=== PATIENT | female | born 1940 | race Caucasian/White ===

== ENCOUNTER → 2017-05-19 | Outpatient (CLI) | payer MEDICARE | END | disposition home or self-care (01) | LOC: KCIC 08:55 | DX: M47.894 Other spondylosis, thoracic region (principal); R05 Cough | CPT/HCPCS: 71046 ==

== ENCOUNTER → 2017-12-20 | Outpatient (CLI) | payer MEDICARE | END | disposition home or self-care (01) | LOC: KCIC MRI 07:36 | DX: M25.78 Osteophyte, vertebrae (principal); K44.9 Diaphragmatic hernia without obstruction or gangrene; M43.13 Spondylolisthesis, cervicothoracic region; M48.04 Spinal stenosis, thoracic region; M12.88 Other specific arthropathies, not elsewhere classified, other specified site; E55.9 Vitamin D deficiency, unspecified | CPT/HCPCS: 72141; 72146 ==

== ENCOUNTER → 2020-08-16 | Outpatient (CLI) | payer MEDICARE ==
[~2020-08-16] MED LIST: ASPI325T8 PO; ATOR20TA58 PO; CELE200C PO; ESTR0.62 PO; HYDR-2145 PO; IBUP200T77 PO; OMEP20TA63 PO
--- NOTE | 2020-08-16 13:45 | KCIC ---
INDICATION: Screening for osteopenia/osteoporosis. Postmenopausal evaluation. COMPARISON: May 2016 TECHNIQUE: Bone densitometry was performed through the lumbar spine and proximal femur. IMPRESSION: Lumbar Spine: BMD: 1.28 T-Score: 2.2 Range: Normal. Increased by 2 percent from prior Proximal Femur: BMD: 0.8 T-Score: -1.0 Range: Osteopenic. Similar to prior. World Health Organization Criteria for Bone Density: T-Score: > -1.0: Normal Range < -1.0 to -2.5: Osteopenic Range < -2.5: Osteoporotic Range Electronically signed by: Scott Hubbard MD (08/16/2020 1:43 PM) [id number]
--- NOTE | 2020-08-16 20:20 | KCIC ---
EXAM: 1. Lumbar spine 5 views. 2. Frontal pelvis with two-view bilateral hip. HISTORY: Low back and bilateral hip pain. COMPARISON: None. FINDINGS: A minimal lumbar dextrocurvature is within normal limits. No fractures are identified. Dege nerative disc disease is moderate to severe at L1-2, moderate at L2-3, and mild for patient age more inferiorly. Facet osteoarthritis is mild to moderate throughout the lumbar spine. No fractures are appreciated within the pelvis. The joint spaces and alignment of both hips are maint ained. IMPRESSION: 1. Degenerative disc disease is moderate to severe at L1-2, moderate at L2-3 and mild more inferiorly . 2. No fracture throughout. 3. No significant degenerative changes at either hip. Electronically signed by: Sandy Nice MD (08/16/2020 8:18 PM) [facility]
== END ==
LOC: KCIC MAMMO 12:26
PROVIDERS: ATTEND Nurse Practitioner Family
DX: N95.8 Other specified menopausal and perimenopausal disorders (principal); M51.36 Other intervertebral disc degeneration, lumbar region; M47.816 Spondylosis without myelopathy or radiculopathy, lumbar region
CPT/HCPCS: 72110; 73521; 77080

== ENCOUNTER → 2020-08-23 | Outpatient (CLI) | payer MEDICARE ==
--- NOTE | 2020-08-23 14:15 | KCIC ---
MR LUMBAR SPINE WO [id number] Date: 08/23/2020 1:12 PM Indication: Low back pain, Left hip pain 6 months. Comparison: None. Technique: Multi-planar multi-weighted magnetic resonance imaging of the lumbar spine was performed w ithout intravenous contrast using the standard lumbar spine protocol. FINDINGS: The lumbar spine is normally aligned. No acute fracture. Moderate multilevel degenerative disc desicc ation and disc height loss. Fatty degenerative endplate changes at L2-3 and to a lesser extent L1-2. The conus terminates at a normal level. No abnormal signal is seen within the visualized distal spina l cord. No clumping of intrathecal nerve roots. No soft tissue abnormality in the visualized abdomen or pelvis. T12-L1: No disc bulge. No facet arthropathy. No significant spinal stenosis or neural foraminal narro wing. L1-L2: Disc bulge. Mild facet arthropathy. No significant spinal stenosis. Moderate right and mild le ft neural foraminal narrowing. L2-L3: Disc bulge. Moderate to severe facet arthropathy. No significant spinal stenosis. Mild to mode rate right and moderate severe left neural foraminal narrowing. L3-L4: Disc bulge. Severe right and moderate left facet arthropathy. No spinal stenosis. No neural fo raminal narrowing. L4-L5: Disc bulge. Moderate facet arthropathy. No significant spinal stenosis. Mild right greater chris n left neural foraminal narrowing. L5-S1: Disc bulge. Severe right and moderate left facet arthropathy. No significant spinal stenosis. Mild bilateral neural foraminal narrowing. IMPRESSION: Moderate lumbar spondylosis, detailed level by level above. Electronically signed by: Michael Owusu MD (08/23/2020 2:13 PM) [id number]
== END ==
LOC: KCIC MRI 12:46
PROVIDERS: ATTEND Nurse Practitioner Family
DX: M47.816 Spondylosis without myelopathy or radiculopathy, lumbar region (principal); M51.27 Other intervertebral disc displacement, lumbosacral region; M48.07 Spinal stenosis, lumbosacral region; M12.88 Other specific arthropathies, not elsewhere classified, other specified site
CPT/HCPCS: 72148

== ENCOUNTER → 2020-08-26 | Outpatient (CLI) | payer MEDICARE ==
--- NOTE | 2020-08-26 14:33 | KCIC ---
Bilateral digital screening mammograms with 3-D tomosynthesis: Reason for examination: Routine screening. Comparison is made to previous study dated 06/01/2016. Bilateral mammograms in CC and oblique projections were obtained with 2-D imaging and 3-D tomosynthes is imaging on a Siemens Inspiration unit and reviewed on the workstation. Interpretation was made wit h the benefit of CAD. The skin and nipples show no abnormalities. No abnormal axillary lymph nodes are seen. The breast par enchyma shows scattered fatty and fibroglandular density. (Breast density: Category B.) There appears to be a small nodular density in the right breast at approximately the 8:30 B position 9 cm from the nipple. Further evaluation with coned compression views and ultrasound is recommended. There are no other dominant masses, suspicious calcifications or architectural distortion. Impression: Small 1 cm nodular density in the right breast at approximately the 8:30 position 9 cm from the nippl e. Recommend further evaluation with coned compression views and ultrasound. BI-RADS Category 0: Incomplete. Needs additional imaging evaluation. "Our facility is accredited by the [employer] Mammography Program." This patient's information has been entered into a reminder system for the patient to be notified wit h the results of her examination and a target date for the next mammogram. Electronically signed by: Monie Poon MD (08/26/2020 2:30 PM) [id number]
== END ==
LOC: KCIC MAMMO 10:06
PROVIDERS: ATTEND Nurse Practitioner Family
DX: Z12.31 Encounter for screening mammogram for malignant neoplasm of breast (principal)
CPT/HCPCS: 77063; 77067

== ENCOUNTER → 2020-09-16 | Outpatient (CLI) | payer MEDICARE ==
[~2020-09-16] MED LIST changes: +CRESTOR5 MG PO; +ERGO2000 PO; +ESOM20CA PO; +IOHEXOL 180 MG/ML 10 ML VIAL. ONE; +LOSA100T14 PO; +MECO10005 PO; +methylPREDNISolone ACETATE 40 MG/ML VIAL. ONE; +methylPREDNISolone ACETATE 80 MG/ML VIAL. ONE
--- NOTE | 2020-09-16 12:38 | PDOC1 ---
INITIAL PAIN CONSULT DATE OF SERVICE: DOS: DATE: 09/16/20 TIME: 12:33 CHIEF COMPLAINT: Chief Complaint: Low back and bilateral lower extremity pain HISTORY OF PRESENT ILLNESS: 80-year-old female presents with history of pain low back bilateral lower extremities since January 2020 not the result of any specific injury accident that she is aware of is getting worse over time with walking standing changing positions with pain is across the low back right essentially equal to left with radiating pain in the posterior gluteus posterior lateral thighs anterior thighs posterior thighs posterior calves medial thighs as well bilaterally were essentially right equal to left patient reports is a constant pain in the back intermittent intensity in the legs but always present changes during the day with activity worse with walking and standing better with sitting or laying down but is awaken her from sleep where she has to go and then get into a reclining chair to get back to sleep. Patient reports is not effective bowel bladder control does affect her ability walk she uses a walker at times but does not have with her today. Patient has had some therapies in the past for her knees and hips but no formal physical therapy for the current situation she is doing some stretching on her own currently patient is taking tramadol as well as arthritis strength Tylenol every 8 hours which both do help by about 30%. Patient did have MRI scan lumbar spine showing degenerative changes throughout the lumbar spine most significantly at the L4-5 level and L5-S1's. Patient reports a disability rating 0-10 10 being worst is a 7 with family home responsibilities and social activity as well as occupational activity 3 with self-care and 5 life support activities especially sleeping. PAST MEDICAL HISTORY: PMH: Arthritis, hypertension, cataract PREVIOUS SURGERIES: Past Surgical Hx: Cataract extraction, knee scope 2014, hysterectomy 1976, splenectomy CURRENT MEDICATIONS: Current Meds: Active Scripts Medications Dose Route/Sig Max Daily Dose Days Date Category Vitamin D2 (Ergocalciferol (Vitamin D2)) 50 Mcg Tablet 50 Mcg PO WEEKLY 09/16/20 Reported B12 Active (Mecobalamin) 1,000 Mcg Tab.chew 1,000 Mcg PO DAILY 09/16/20 Reported Nexium Capsule (Esomeprazole Magnesium) 20 Mg Capsule. 1 Cap PO DAILY 09/16/20 Reported Crestor (Rosuvastatin Calcium) 5 Mg Tablet 20 Mg PO HS 09/16/20 Reported Losartan Potassium 100 Mg Tablet 100 Mg PO DAILY 09/16/20 Reported Aspirin 325 Mg Tablet 325 Mg PO 11/14/13 Reported Premarin (Estrogens, Conjugated) 0.625 Mg Tablet 0.625 Mg PO DAILY 11/14/13 Reported Celebrex (Celecoxib) 200 Mg Capsule 200 Mg PO BID 30 11/14/13 Reported ALLERGIES; Allergies: Coded Allergies: sulfamethoxazole (Unverified Allergy, Intermediate, Rash, 11/22/13) trimethoprim (Unverified Allergy, Intermediate, Rash, 11/22/13) FAMILY HISTORY: Family Hx: Breast cancer, kidney disease SOCIAL HISTORY: Social Hx: Patient is nondrug alcohol does not smoke does not use any illegal illicit or recreational drugs is lives with her spouse lives locally in [facility] and is currently retired. REVIEW OF SYSTEMS: ROS: Positive for those items mentioned in history of present illness, all systems are reviewed, otherwise negative ,and are complete full and well-documented on patient's chart. PHYSICAL EXAM: VS: Blood pressure is 109 pulse 73 respirations 18 temperature is 98.3 F height is 5 feet 7 inches weight is 241 pounds PE: PHYSICAL EXAMINATION: GENERAL: The patient is awake, alert, oriented, appropriate, very pleasant demeanor HEENT: Shows normocephalic, atraumatic. Extraocular movements are intact and symmetrical. Oral cavity: Mucous membranes moist and pink. NECK: Shows anterior throat supple without palpable lymphadenopathy noted. Swallow reflex symmetrical. CHEST: Shows normal on inspection. Breath sounds are clear bilaterally, distant but no rales rhonchi or wheezes auscultated. HEART: Shows S1, S2 clear. No murmurs auscultated. ABDOMEN: Soft, nontender, nondistended, obese. No palpable organomegaly is noted. No rebound or guarding demonstrated. BACK: Shows spine grossly in the midline. Normal-appearing cervical lordotic curvature. There is slightly increased thoracic kyphosis, some flattening of the lumbar lordotic curvature. Lumbar paraspinous muscles show symmetrical on inspection, on palpation shows some moderate tenderness diffusely throughout the upper, middle and lower distribution of the paraspinous muscles bilaterally and also into the lower thoracic paraspinous musculature, firm and tender, but without specific trigger points, without radiation of pain. The patient has good rotational motion of the lumbar spine, both laterally as well as extension and flexion without significant difficulty. No tenderness over the spinous processes, sacrum or sacroiliac regions. EXTREMITIES: Lower extremities show deep tendon reflexes 2+ in the patellar and tendo calcaneus tendons. Motor exam is 4 on a scale of 5 with right dorsiflexion, extension, quadriceps and hamstring flexion and 4/5 on the left. Peripheral pulses are 1+ posterior tibial. No peripheral edema is noted bilaterally. Lower extremities are warm and dry to touch, equal in color and appearance. Straight leg raise noted to be negative bilaterally. Gaenslen's and Dc's maneuvers are negative as well. The patient is able to stand, stand on her toes but loses balance quickly when standing her right leg greater than left walks with a slight shuffling gait does not appear to favor the right or left lower extremity significantly is not use any assistive devices on her visit however does report she uses a walker at times. SKIN: Shows warm and dry, good turgor. No edema. No sores, rashes or bruising throughout. IMPRESSION: Impression: 80-year-old female with approximate 8-month history of low back bilateral lower extremity pain in a radicular fashion. MRI scan lumbar spine as noted Arthritis Hypertension Plan: Options were discussed with the patient including conservative medical management physical therapies interventional techniques. Patient will proceed with techniques. We discussed a lumbar epidural steroid injection using description as well as anatomical models described procedure. Risks were discussed including but not limited to: Bleeding, infection, possibility of epidural hematoma and subsequent neurological compromise, dural puncture, headaches, spinal cord and/or nerve damage, side effects of steroid medication, and poor results regarding pain control. Patient understands and wished to proceed. Patient will return to clinic in approximately 2 weeks for follow-up, was counseled as to return appointment activity level and side effects to be aware of. Procedure is lumbar epidural steroid injection under local anesthetic using sterile prep and drape at the L4-5 level using C-arm fluoroscopic guidance in both AP and lateral views medications injected is 120 mg Depo-Medrol + 10 mL preservative-free normal saline and 2 mL contrast- condition at discharge is stable patient tolerated procedure well had no complications. AARON SHUKLA MD September 16, 2020 12:38
== END | disposition home or self-care (01) ==
LOC: PNCL 11:09
PROVIDERS: ATTEND Anesthesiology
DX: M54.5 Low back pain (principal); M79.605 Pain in left leg; M79.604 Pain in right leg; M19.90 Unspecified osteoarthritis, unspecified site; I10 Essential (primary) hypertension; Z79.82 Long term (current) use of aspirin; Z79.899 Other long term (current) drug therapy; Z88.2 Allergy status to sulfonamides; Z88.8 Allergy status to other drugs, medicaments and biological substances; Z90.710 Acquired absence of both cervix and uterus; Z98.890 Other specified postprocedural states; Z80.3 Family history of malignant neoplasm of breast
CPT/HCPCS: 62323; J1030; J1040; Q9965

== ENCOUNTER → 2020-10-08 | Outpatient (CLI) | payer MEDICARE ==
[~2020-10-08] MED LIST changes: -IOHEXOL 180 MG/ML 10 ML VIAL. ONE; -methylPREDNISolone ACETATE 40 MG/ML VIAL. ONE; -methylPREDNISolone ACETATE 80 MG/ML VIAL. ONE
--- NOTE | 2020-10-08 09:40 | KCIC ---
Right breast diagnostic digital mammograms: Reason for examination: Parenchymal density on screening mammogram. Comparison is made to previous study dated 08/26/2020. With the coned compression views, there still appears to be a small circumscribed nodule. This may re present a small intramammary lymph node measuring approximately 4 mm in size. No suspicious nodules a re seen. Further evaluation with ultrasound will follow. IMPRESSION: Small 4 mm circumscribed nodule at the 9:00 position which may represent a small intramammary lymph n ode. Ultrasound to follow. BI-RADS Category 0: Incomplete: Need additional imaging evaluation. Right breast ultrasound: Ultrasound examination of the right breast and axilla was performed. No discrete cystic or solid nodule is identified. The small lymph node however could be isoechoic to the normal fibroglandular and fatty tissues. No abnormal appearing lymph nodes are seen in the right axilla. IMPRESSION: No suspicious abnormality seen in the right breast. Recommend 6 month follow-up with right breast frieda mograms and ultrasound. BI-RADS Category 3: Probably Benign. "Our facility is accredited by the [employer] Mammography Program." This patient's information has been entered into a reminder system for the patient to be notified wit h the results of her examination and a target date for the next mammogram. Electronically signed by: Monie Poon MD (10/08/2020 9:38 AM) [email or web address]
== END ==
LOC: KCIC MAMMO 08:16
PROVIDERS: ATTEND Nurse Practitioner Family
DX: N63.13 Unspecified lump in the right breast, lower outer quadrant (principal)
CPT/HCPCS: 76641; 77065

== ENCOUNTER → 2020-11-28 | Outpatient (CLI) | payer MEDICARE ==
--- NOTE | 2020-11-28 12:00 | RAD ---
EXAMINATION: US DPLX VENOUS EXTREMITY LOWER RT (LOWER EXTREMITY VENOUS ULTRASOUND) CLINICAL HISTORY: Right lower extremity edema, status post knee surgery 10-21-20 TECHNIQUE: Sonographic grayscale images obtained of the right lower extremity deep venous system with color flow Doppler, compression, and augmentation techniques as indicated. Images obtained and stor ed in a permanent archive. COMPARISON: None FINDINGS: No evidence of absent flow or incompressibility within the common femoral vein, femoral vein, or popl iteal vein. Visualized calf veins appear patent on limited evaluation. Partially visualized anechoic fluid along the anterolateral aspect of the knee, possibly residual postsurgical joint effusion. IMPRESSION: No evidence of right lower extremity DVT. Partially visualized fluid along the anterolateral aspect of the right knee, possibly residual postsu rgical joint effusion. Electronically signed by: Arik Mascorro DO (11/28/2020 11:58 AM) [id number]
== END ==
LOC: US 11:16
PROVIDERS: ATTEND Nurse Practitioner Family
DX: R60.0 Localized edema (principal)
CPT/HCPCS: 93971

== ENCOUNTER → 2020-12-11 | Outpatient (CLI) | payer MEDICARE ==
[~2020-12-11] MED LIST changes: +IOHEXOL 180 MG/ML 10 ML VIAL. ONE; +methylPREDNISolone ACETATE 40 MG/ML VIAL. ONE; +methylPREDNISolone ACETATE 80 MG/ML VIAL. ONE
--- NOTE | 2020-12-11 11:23 | PDOC ---
Progress Note - Pain Clinic Date of Service: DOS: DATE: 12/11/20 TIME: 11:20 Diagnosis: Dx: Lumbar radiculopathy with lumbar degenerative disease and lumbar spondylosis History or Present Illness: HPI: 80-year-old female returns for follow-up status post lumbar epidural steroid traction x1 last seen September 16, 2020. Patient reports she did very well near 100% improvement for 1 month following the injection now the pain is returning in the low back and right lower extremity. Patient reports is a 4 on a scale of 10 at its worst and average is a 2 at its least is a 2 today patient reports pain low back right lower extremity posterior gluteus posterior lateral thigh lateral anterior thigh anterior medial thigh aching and tingling in the back and shooting sharp sometimes unbearable with walking standing but after 1 month following her injection the pain began to return gradually she was initially much better distance walking driving doing household activities travel with greater ease and comfort sleeping much better at night but reports generally does not awaken her from sleep at this time. Patient reports no new motor or sensory deficits no bowel or bladder incontinence Physical Exam: VS: Blood pressure is 143/72 pulse 69 respirations 18 temperature 98.2 F height is 5 feet 7 inches weight is 235 pounds PE: PHYSICAL EXAMINATION: GENERAL: The patient is awake, alert, oriented, appropriate, very pleasant in demeanor. HEENT: Shows normocephalic, atraumatic. Extraocular movements are intact and symmetrical. Oral cavity: Mucous membranes moist and pink. NECK: Shows anterior throat supple without palpable lymphadenopathy noted. Swallow reflex symmetrical. CHEST: Shows normal on inspection. Breath sounds are clear bilaterally, no rales rhonchi or wheezes auscultated. HEART: Shows S1, S2 clear. No murmurs auscultated. ABDOMEN: Soft, nontender, nondistended, obese. No palpable organomegaly is noted. BACK: Shows spine grossly in the midline. Normal-appearing cervical lordotic curvature. There is slightly increased thoracic kyphosis, some minor flattening of the lumbar lordotic curvature. Lumbar paraspinous muscles show symmetrical on inspection, on palpation shows some moderate tenderness diffusely throughout the upper, middle and lower distribution of the paraspinous muscles without specific trigger points, without radiation of pain. The patient has good rotational motion of the lumbar spine, both laterally as well as extension and flexion without significant difficulty. No tenderness over the spinous processes, sacrum or sacroiliac regions. EXTREMITIES: Lower extremities show deep tendon reflexes 2+ in the patellar and tendo calcaneus tendons. Motor exam is 4 on a scale of 5 with right dorsiflexion, extension, quadriceps and hamstring flexion and 4/5 on the left. Peripheral pulses are 1+ posterior tibial. No peripheral edema is noted bilaterally. Lower extremities are warm and dry to touch, equal in color and appearance. SKIN: Shows warm and dry, good turgor. No edema. No sores, rashes or bruising throughout. Procedure: Procedure: Options discussed with patient. Patient chart was reviewed, as was her current medication regimen updated current review of systems updated today as well. We will proceed with a lumbar epidural steroid injection today as the second in this series with fluoroscopic guidance. Risks were discussed including but not limited to: Bleeding, infection, possibility of epidural hematoma and subsequent neurological compromise, dural puncture, headaches, spinal cord and/or nerve damage, side effects of steroid medication, and poor results regarding pain control. Patient understands and wished to proceed. Patient will return to clinic in approximately 2 weeks for follow-up, was counseled as to return appointment activity level and side effects to be aware of. Medication Injected: Med Injected: Procedure is lumbar epidural steroid injection under local anesthetic using sterile prep and drape at the L4-5 level using C-arm fluoroscopic guidance in both AP and lateral views medications injected is 120 mg Depo-Medrol +10mL preservative-free normal saline and 2 mL contrast- condition at discharge is stable patient tolerated procedure well had no complications. Condition at Discharge: Condition at Discharge: Condition at discharge stable, patient tolerated procedure well and had no complications. AARON SHUKLA MD Dec 11, 2020 11:23
--- NOTE | 2020-12-11 11:24 | PDOC4 ---
Procedure Note: ICD 10 Code: ICD 10 Code: M 54.16 M 47.816 M 51.36 Procedure Note: Patient was consented for lumbar epidural steroid injection with fluoroscopic guidance. Risks were discussed including but not limited to: Bleeding, infection, possibility of epidural hematoma and subsequent neurological compromise, dural puncture, headaches, spinal cord and/or nerve damage, side effects of steroid medication, and poor results regarding pain control. Patient understands and wished to proceed. Procedure is lumbar epidural steroid injection under local anesthetic using sterile prep and drape at the L4-5 level using C-arm fluoroscopic guidance in both AP and lateral views medications injected is 120 mg Depo-Medrol +10mL preservative-free normal saline and 2 mL contrast- condition at discharge is stable patient tolerated procedure well had no complications. AARON SHUKLA MD Dec 11, 2020 11:24
== END | disposition home or self-care (01) ==
LOC: PNCL 10:29
PROVIDERS: ATTEND Anesthesiology
DX: M51.16 Intervertebral disc disorders with radiculopathy, lumbar region (principal); M47.26 Other spondylosis with radiculopathy, lumbar region; Z79.82 Long term (current) use of aspirin; Z79.899 Other long term (current) drug therapy; Z98.890 Other specified postprocedural states; Z88.2 Allergy status to sulfonamides; Z88.8 Allergy status to other drugs, medicaments and biological substances
CPT/HCPCS: 62323; J1030; J1040; Q9965